=== PATIENT | female | born 1935 | race Caucasian/White ===

== ENCOUNTER → 2021-01-25 | Outpatient (CLI) | payer MEDICARE, OTHER | LOC: KOH-I 13:32 | DX: M79.672 Pain in left foot (principal); M79.671 Pain in right foot; M25.572 Pain in left ankle and joints of left foot; M25.571 Pain in right ankle and joints of right foot | CPT/HCPCS: 73610; 73630 ==

== ENCOUNTER 2022-03-25 01:28 | Emergency (ER) | payer MEDICARE, OTHER ==
[2022-03-25 03:09] LABS: HEMOGLOBIN 15.4 gm/dl (12.3-15.3); RED BLOOD COUNT 5.23 M/UL (4.00-5.10); WHITE BLOOD COUNT 5.4 K/UL (4.5-11.0)
[2022-03-25] MEDS ORDERED: MACROBID 100 M100 M1 PO (04:48)
[2022-03-25] MEDS ORDERED: ZOFRAN ODT 4 MG4 MG PO (04:48)
[2022-03-25] MEDS ORDERED: MYCELEX TROCHE10 MG MT (04:48)
== END 2022-03-25 05:01 | disposition home or self-care (01) ==
LOC: ER1 01:28
PROVIDERS: Physician Assistant
DX: N30.01 Acute cystitis with hematuria (principal); B37.0 Candidal stomatitis; Z88.0 Allergy status to penicillin; Z91.041 Radiographic dye allergy status
CPT/HCPCS: 80053; 81001; 83605; 83690; 83735; 85025; 87086; 96361; 96374; 96376; 99284; J2405